=== PATIENT | female | born 1995 | race Caucasian/White ===

== ENCOUNTER 2019-11-08 11:44 | Emergency (ER) | payer SELFPAY ==
[~2019-11-08] VITALS: Ht 177.8 cm; Wt 136.1 kg
[~2019-11-08 11:44] MED LIST: BIRTHCONTROL; BUPR75; CYCL10 PO; IBUP600 PO; IBUP800 PO; Norco 5-325 Ta1 EACH PO; Zofran Odt4 MG SL
[2019-11-08] MEDS ORDERED: Prozac20 MG PO (12:16)
[2019-11-08] MEDS ORDERED: Vibramycin100 MG PO (14:16)
== END 2019-11-08 14:26 | disposition home or self-care (01) ==
LOC: ER 11:44
DX: H72.92 Unspecified perforation of tympanic membrane, left ear (principal); J32.9 Chronic sinusitis, unspecified; Z88.0 Allergy status to penicillin; Z91.013 Allergy to seafood
CPT/HCPCS: 99283

== ENCOUNTER 2020-03-19 13:12 | Emergency (ER) | payer SELFPAY ==
[~2020-03-19] VITALS: Ht 172.7 cm; Wt 145.2 kg
[~2020-03-19 13:12] MED LIST changes: +Prozac20 MG PO; +Vibramycin100 MG PO
== END 2020-03-19 15:16 | disposition home or self-care (01) ==
LOC: ER 13:12
DX: J02.9 Acute pharyngitis, unspecified (principal); Z20.828 Contact with and (suspected) exposure to other viral communicable diseases; Z88.0 Allergy status to penicillin; Z91.013 Allergy to seafood
CPT/HCPCS: 71045; 87081; 99283-25; U0002